=== PATIENT | male | born 1955 | race Caucasian/White ===

== ENCOUNTER → 2017-04-26 | Outpatient (CLI) | payer OTHER ==
--- NOTE | 2017-04-26 16:42 | US ---
EXAMINATION TYPE: US abdomen complete DATE OF EXAM: 04/26/2017 COMPARISON: NONE CLINICAL HISTORY: R10.13 Epigastric pain R19.36 Epigastric abd rigid. Epigastric pain, NPO EXAM MEASUREMENTS: Liver Length: 17.2 cm Gallbladder Wall: 0.2 cm CHD: 0.6 cm Spleen: 13.2 cm Right Kidney: 12.6 x 6.0 x 5.0 cm Left Kidney: 12.7 x 5.1 x 6.1 cm Limited exam due to overlying bowel gas Pancreas: Body appears echogenic and suboptimally seen due to overlying bowel gas. Head and gas obs cured by overlying bowel gas Liver: Appears heterogenous, echogenic and upper limits of normal in size Gallbladder: wnl Evidence for sonographic High's sign: neg CHD: wnl Spleen: Slightly enlarged Right Kidney: Appears lobular and cortical thinning seen Left Kidney: Appears lobular and cortical thinning seen Upper IVC: Obscured by overlying bowel gas Abd Aorta: Obscured by overlying bowel gas The liver is heterogenous. The intrahepatic portion of the IVC and proximal abdominal aorta are withi n normal limits. There is no evidence of cholelithiasis. Common bile duct is unremarkable. The vis ualized portions of the pancreas are homogenous. The spleen is mildly enlarged. Kidneys are symmetri c and free of hydronephrosis. No renal lesions are seen. IMPRESSION: 1. Fatty liver versus diffuse hepatocellular disease. 2. Mild splenomegaly.
[2017-04-26 17:40] LABS: Basophils # (A) 0.1 k/uL (0-0.2); Basophils % (A) 0 %; Eosinophils # (A) 0.2 k/uL (0-0.7); Eosinophils % (A) 1 %; HCT 47.8 % (39.0-53.0); HGB 16.8 gm/dL (13.0-17.5); Lymphocytes # (A) 1.4 k/uL (1.0-4.8); Lymphocytes % (A) 11 %; MCH 31.3 pg (25.0-35.0); MCHC 35.1 g/dL (31.0-37.0); MCV 88.9 fL (80.0-100.0); Mean Platelet Volume 7.1; Monocytes # (A) 0.8 k/uL (0-1.0); Monocytes % (A) 6 %; Neutrophils # (A) 10.5 k/uL (1.3-7.7); Neutrophils % (A) 80 %; Platelet Count 193 k/uL (150-450); RBC 5.38 m/uL (4.30-5.90); RDW 12.4 % (11.5-15.5); WBC 13.2 k/uL (3.8-10.6)
[2017-04-26 17:49] LABS: ALT 48 U/L (21-72); AST 33 U/L (17-59); Albumin 4.3 g/dL (3.5-5.0); Alkaline Phosphatase 58 U/L (38-126); Amylase 58 U/L (30-110); Anion Gap 12 mmol/L; Blood Urea Nitrogen 16 mg/dL (9-20); Carbon Dioxide 27 mmol/L (22-30); Chloride 98 mmol/L (98-107); Glucose 89 mg/dL (74-99); Lipase 128 U/L (23-300); Potassium 4.2 mmol/L (3.5-5.1); Sodium 137 mmol/L (137-145); Total Bilirubin 1.1 mg/dL (0.2-1.3); Total Protein 6.9 g/dL (6.3-8.2)
== END | disposition home or self-care (01) ==
LOC: RADUSWWP 15:52
PROVIDERS: ATTEND Family Medicine
DX: K76.0 Fatty (change of) liver, not elsewhere classified (principal); R16.1 Splenomegaly, not elsewhere classified
CPT/HCPCS: 36415; 76700; 80053; 82150; 83690; 85025

== ENCOUNTER → 2021-11-09 | Outpatient (CLI) | payer OTHER ==
--- NOTE | 2021-11-09 15:25 | XR ---
EXAMINATION TYPE: XR chest 2V DATE OF EXAM: 11/09/2021 3:18 PM COMPARISON: Chest radiographs from 06/29/2015. TECHNIQUE: XR chest 2V Frontal and lateral views of the chest. CLINICAL INDICATION:Male, 66 years old with history of B342 COVID INFECTION; FINDINGS: Lungs/Pleura: There is no evidence of pleural effusion, focal consolidation, or pneumothorax. Chroni c mild interstitial prominence. Peribronchial cuffing demonstrated. Heart/mediastinum: Cardiomediastinal silhouette is prominent but stable. Musculoskeletal: Multiple level degenerative disc disease changes seen throughout the spine. No acute osseous abnormality. IMPRESSION: Peribronchial cuffing demonstrated. Correlate for bronchitis. No focal consolidation.
== END | disposition home or self-care (01) ==
LOC: RADXRYALE 15:02
PROVIDERS: ATTEND Physician Assistant
DX: B34.2 Coronavirus infection, unspecified (principal)
CPT/HCPCS: 71046

== ENCOUNTER → 2021-12-20 | Outpatient (CLI) | payer MEDICARE ==
--- NOTE | 2021-12-22 23:12 | XR ---
EXAMINATION TYPE: XR chest 2V DATE OF EXAM: 12/21/2021 COMPARISON: Chest x-ray November 09, 2021 HISTORY: Presurgical TECHNIQUE: Frontal and lateral views of the chest are obtained. FINDINGS: There is mild chronic parenchymal change without suspicious new focal air space opacity, p leural effusion, or pneumothorax seen. The cardiac silhouette size is redemonstrated enlarged. The osseous structures are intact. IMPRESSION: Cardiomegaly without acute pulmonary process.
== END | disposition home or self-care (01) ==
LOC: RADXRMAIN 14:58
PROVIDERS: ATTEND Orthopaedic Surgery Orthopaedic Surgery of the Spine
DX: Z01.818 Encounter for other preprocedural examination (principal); I51.7 Cardiomegaly
CPT/HCPCS: 71046

== ENCOUNTER → 2021-12-20 | Outpatient (CLI) | payer MEDICARE | END | disposition home or self-care (01) | LOC: LABPAT 21:41 | PROVIDERS: ATTEND Orthopaedic Surgery Orthopaedic Surgery of the Spine | DX: Z53.9 Procedure and treatment not carried out, unspecified reason (principal) ==

== ENCOUNTER 2021-12-26 07:57 | Inpatient (IN) | payer OTHER ==
[2021-12-22 10:17] VITALS: BMI 34.4
[~2021-12-26 07:57] MED LIST: DEXAMETHASONE SOD PHOSPHATE 4 MG/ML 1 ML VIAL IV ONE; HYDROmorphone 0.5 MG/0.5 ML SYRINGE IVP PRN; ONDANSETRON 4 MG/2 ML VIAL IVP ONE; ceFAZolin 1,000 MG in SODIUM CHLORIDE 0.9% IRRIGATIO 1,000 ML IRRIGATION PRN
[2021-12-26] MEDS: LACTATED RINGERS 1,000 ML IV SCH ×2 (12:18→12:36)
[2021-12-26] MEDS ORDERED: LIDOCAINE 2%-EPI 1:100,000 20 ML VIAL SQ ONE ×2 (12:28→13:11)
[2021-12-26] MEDS ORDERED: GELATIN SPONGE,ABSORB (LARGE) 1 EACH SPONGE MISCELLANE ONE (12:28)
[2021-12-26] MEDS ORDERED: BUPIVACAINE (PF) 0.5% 30 ML VIAL SQ ONE ×2 (12:28→13:11)
[2021-12-26] MEDS ORDERED: THROMBIN (BOVINE) 5,000 UNIT VIAL MISCELLANE ONE (12:29)
[2021-12-26] MEDS ORDERED: HYDROmorphone (PF) 1 MG/ML ONE (12:33)
[2021-12-26] MEDS ORDERED: KETAMINE 10 MG/ML 20 ML VIAL ONE (12:33)
[2021-12-26] MEDS ORDERED: MIDAZOLAM 2 MG/2 ML VIAL ONE (12:33)
[2021-12-26] MEDS ORDERED: ROCURONIUM 10 MG/ML (5 ML VIAL) IV ONE (12:33)
[2021-12-26] MEDS ORDERED: NEOSTIGMINE 1 MG/ML 10 ML VIAL ONE (12:33)
[2021-12-26] MEDS ORDERED: LIDOCAINE 2% INJ 20 MG/ML (2 ML VIAL) ONE (12:33)
[2021-12-26] MEDS ORDERED: DEXAMETHASONE SOD PHOSPHATE 10 MG/ML 1 ML VIAL ONE (12:33)
[2021-12-26] MEDS ORDERED: PROPOFOL 10 MG/ML 20 ML VIAL IV ONE (12:33)
[2021-12-26] MEDS ORDERED: fentaNYL (PF) 50 MCG/ML 2 ML AMP ONE (12:33)
[2021-12-26] MEDS ORDERED: GLYCOPYRROLATE 0.2 MG/ML 2 ML VIAL ONE (12:33)
[2021-12-26] MEDS ORDERED: ePHEDrine 50 MG/ML 1 ML VIAL ONE (12:33)
[2021-12-26] MEDS ORDERED: PHENYLEPHRINE-0.9% NACL SYG 1,000 MCG/10 ML SYRINGE ONE (12:33)
[2021-12-26] MEDS ORDERED: SUCCINYLCHOLINE CHLORIDE 200 MG/10 ML VIAL IV ONE (12:33)
[2021-12-26 12:47] LABS: ALT 29 U/L (4-49); AST 37 U/L (17-59); African American GFR (CKD) >90 (>60 ml/min/1.73 sqM); Albumin 4.4 g/dL (3.5-5.0); Alkaline Phosphatase 60 U/L (38-126); Anion Gap 8 mmol/L; Blood Urea Nitrogen 14 mg/dL (9-20); Calcium 9.5 mg/dL (8.4-10.2); Carbon Dioxide 28 mmol/L (22-30); Chloride 101 mmol/L (98-107); Glucose 95 mg/dL (74-99); Non-African American GFR(CKD) >90 (>60 ml/min/1.73 sqM); Potassium 4.1 mmol/L (3.5-5.1); Sodium 137 mmol/L (137-145); Total Bilirubin 0.9 mg/dL (0.2-1.3); Total Protein 6.9 g/dL (6.3-8.2)
[2021-12-26] MEDS ORDERED: LACTATED RINGERS 1,000 ML IV ONE (13:50)
[2021-12-26] MEDS ORDERED: HYDROmorphone 0.5 MG/0.5 ML SYRINGE IVP PRN (15:14)
[2021-12-26] MEDS ORDERED: BENZOCAINE/MENTHOL LOZENG 1 EACH LOZENGE MUCOUS MEM PRN (15:14)
[2021-12-26] MEDS ORDERED: HYDROmorphone 1 MG/ML 1 ML SYRINGE IVP PRN (15:14)
--- NOTE | 2021-12-26 15:14 | XR ---
EXAMINATION TYPE: XR cervical spine limited, XR cervical spine limited DATE OF EXAM: 12/26/2021 1:39 PM INDICATION: Patient age:Male; 66 years old; Reason for study: NEEDLE PLACEMENT PRIOR TO FUSION; [facility]. COMPARISON: None TECHNIQUE: The cervical spine was single lateral projection. FINDINGS: Needle placement radiograph for cervical fusion. Needle tip at superior endplate of C4 anteriorly. En dotracheal tube in place. No evidence of acute fracture. IMPRESSION: Radiographic services for needle placement for cervical fusion.
[2021-12-26] MEDS ORDERED: ONDANSETRON 4 MG/2 ML VIAL IVP PRN (15:15)
[2021-12-26] MEDS ORDERED: CYCLOBENZAPRINE 10 MG TAB PO PRN (15:16)
--- NOTE | 2021-12-26 15:26 | P.OP ---
Date of Procedure: 12/26/21 Preoperative Diagnosis: Severe cervical stenosis C3 4 C4 5 C5 6, myelopathy, cervical myelomalacia, degenerative disc disease C3 4 C4 5 C5 6, upper extremity weakness, upper extremity myeloradiculopathy, neck pain Postoperative Diagnosis: Same Anesthesia: GETA Pathology: none sent Condition: stable Disposition: PACU Description of Procedure: BRIEF OPERATIVE NOTE Preoperative Diagnosis:Severe cervical stenosis C3 4 C4 5 C5 6, myelopathy, cervical myelomalacia, degenerative disc disease C3 4 C4 5 C5 6, upper extremity weakness, upper extremity myeloradiculopathy, neck pain Postoperative Diagnosis:Severe cervical stenosis C3 4 C4 5 C5 6, myelopathy, cervical myelomalacia, degenerative disc disease C3 4 C4 5 C5 6, upper extremity weakness, upper extremity myeloradiculopathy, neck pain Procedure: Anterior cervical decompression and fusion C3 4 C4 5 C5 6 Subtotal corpectomy of C4 for decompression Placement of interbody graft C3 4 C4 5 C5 6 Application of anterior cervical plate C3 4 5 and 6 Surgeon: Dr. Conn Owner Operator Tanker Truck Driver: Alin BUENROSTRO who is present throughout the entire the case persistence during positioning, dissection, exposure, visualization, and all crucial elements of the case as well as closure. Anesthesia: General anesthesia per Dr. Stewart Estimated blood loss: Approximately 100 mL Complications: None apparent Components implanted: K2M [place] anterior cervical plate system with screws and Vikos interbody allograft bone graft with 1 mL of DBX bone putty Disposition: To recovery room in good stable condition. OPERATIVE INDICATIONS The patient has had long-standing issues in their neck and upper extremities. He's been having worsening over the past couple of months. The patient has been through conservative treatment. He is found to have evidence of significant changes at his cervical spine with Klippel-Feil fusion at C2 3 with severe stenosis C3 4 C4 5 C5 6 with myelomalacia at his cervical spine which correlated with his neck upper extremity and myelopathic symptoms. We felt that he should undergo surgical intervention. We discussed various treatment options including surgery, and the patient wishes to proceed with surgery We discussed the risk, patient's alternatives and benefits of surgery including but not limited to, risk of bleeding risk of infection, risk of need for further surgery, risk of decreased, loss of motion, muscle function, malunion nonunion, hardware failure, nerve damage, paralysis, heart attack, and . OPERATIVE SUMMARY After discussing all the risks, patient alternatives and benefits at length, the patient elected to proceed with surgical intervention, signed informed consent, and presented for their procedure. The patient was seen and examined in the preoperative holding area and the surgical site was marked. The patient was given antibiotics and brought to the operating room. The patient was positioned on the operating room table in a supine position being careful to pad any bony prominences and pressure points. The patient was sedated and intubated by anesthesia in standard fashion. Once the airway and C-spine were stabilized the patient's arms were padded and tucked at her side, with her shoulders gently taped. The head was placed in a donut pad with the neck in good neutral alignment and position. We were careful to maintain the patient's cervical spine and good neutral alignment and position throughout. The patient was prepped and draped in a normal standard fashion. An appropriate timeout and keystone protocol performed. We were able to proceed with the surgery. The local wound area was infiltrated with local anesthetic. An incision was made transversely approximately 2-1/2 cm over the appropriate levels at C4. Dissection was taken down subcutaneously to the level of the platysma which was split in line with its fibers. Dissection was taken with a carotid approach, with the trachea and esophagus medial and the carotid sheath laterally. We dissected down to the anterior surface of the vertebral bodies from C3 to C6. Intraoperative x-ray was taken which showed a marker at the appropriate level at C4 5. With the appropriate level positively confirmed, we were able to proceed with discectomy at the appropriate levels. All of the operative levels were exposed appropriately. The patient had all their twitches back, and there was no evidence of recurrent laryngeal issue. The wound was copiously irrigated and suctioned dry as had been done periodically throughout the case. At the appropriate level/levels, starting at C3 4 and including C4 5 and then C5 6 I established an annulotomy with an 11 blade scalpel. A discectomy was performed with a combination of pituitary rongeurs, curettes, a high-speed bur, and Kerrison rongeurs. The posterior longitudinal ligament was taken down as were any posterior osteophytes. There was evidence of significant stenosis behind see for both superiorly and inferiorly. I had to take down good portions of the superior portion of the vertebral body of C4 as well as injury portion of vertebral body of C4 in order to obtain adequate decompression. I and the performing a subtotal corpectomy but able to leave the middle third of the vertebral body at C4 to provide some stability and position for bony fusion. This gave good central and bilateral foraminal decompression. Good decompression discectomy was performed at C56 as well. There is no evidence of any dural tear or leak. The endplates were prepared with a high-speed bur. With the endplates in good parallel position, I was able to size for the appropriate size interbody graft. The wound was irrigated and suctioned dry the graft was prepared and malleted into position. It had good alignment and position with the anterior surface flush with the anterior surface of the vertebral bodies. This was done similarly the appropriate levels. With the grafts intact, I was able to measure and contour and appropriate sized plate. The plate was positioned at the midline over the appropriate levels. Screw holes were established with a hand drill and drill guide. Screws were placed in good alignment and position with excellent bony purchase. They were seated under the locking device. The construct was checked and found to be stable. Intraoperative x-ray was taken which showed good alignment and position of the implants at the appropriate levels. There was no evidence of any dural tear or leak. Good hemostasis was maintained. The wound was copiously irrigated and suctioned dry as had been done periodically throughout the case. The platysma was closed with absorbable suture. The subcutaneous tissue was closed. The subcuticular tissue was closed with absorbable suture. The wound was cleaned and dried and dressed appropriately. A soft cervical collar was placed appropriately. The patient was woken up by anesthesia, extubated, transferred back gently to their hospital bed and brought to the recovery room in good stable condition. The patient will be admitted to the hospital for appropriate postoperative care, medical management and monitoring. We will continue to follow them closely about the postoperative course.
[2021-12-26] MEDS ORDERED: ESCITALOPRAM 10 MG TAB PO SCH (17:30)
[2021-12-26] MEDS ORDERED: LOSARTAN-HCTZ 50-12.5 MG 1 EACH TAB PO SCH (17:30)
[2021-12-26 19:58] VITALS: RESP 16
[2021-12-26] MEDS: HYDROcodone/APAP 5-325MG 1 EACH TAB PO PRN (20:47)
[2021-12-26] MEDS: CYCLOBENZAPRINE 10 MG TAB PO PRN (20:47)
[2021-12-27] MEDS: HYDROcodone/APAP 5-325MG 1 EACH TAB PO PRN ×2 (02:10→06:03)
[2021-12-27] MEDS: CYCLOBENZAPRINE 10 MG TAB PO PRN (06:03)
[2021-12-27] MEDS: LACTATED RINGERS 1,000 ML IV SCH (06:14)
[2021-12-27 08:01] VITALS: BP 156/74; PULSE 87; TEMP 98
--- NOTE | 2021-12-27 08:45 | P.DS ---
Providers Date of admission: 12/26/21 10:59 Expected date of discharge: 12/27/21 Attending physician: Tita Conn Primary care physician: Darius Bell - Discharge Diagnosis(es) (1) Cervical myelopathy Current Visit: Yes Status: Acute (2) Cervical cord myelomalacia Current Visit: Yes Status: Acute (3) Upper extremity weakness Current Visit: Yes Status: Acute (4) Radiculopathy affecting upper extremity Current Visit: Yes Status: Acute (5) Cervicalgia Current Visit: Yes Status: Acute (6) Cervical stenosis of spinal canal Current Visit: Yes Status: Acute (7) Degenerative cervical disc Current Visit: Yes Status: Acute (8) Status post cervical spinal fusion Current Visit: Yes Status: Acute (9) Hyperlipidemia Current Visit: Yes Status: Acute (10) Hypertension Current Visit: Yes Status: Acute (11) Unsteady gait Current Visit: Yes Status: Acute (12) History of shortness of breath Current Visit: Yes Status: Acute Hospital Course: This is a pleasant 66-year-old male who presented with cervical myelopathy, cervical myelomalacia, upper extremity weakness, upper extremity radiculopathy, cervical stenosis, cervicalgia, and cervical degenerative disc disease who failed outpatient conservative therapy. He was admitted for a C3-4, C4-5, and C5-6 anterior cervical decompression and fusion. The patient tolerated the procedure well and did well postoperatively. He is not experiencing the numbness in his hands like he was prior to surgical intervention. He is able to make a fist bilaterally this morning which he could not do prior to surgical intervention. He is very happy with his progress so far postoperatively. His cervical pain is well-controlled. He is voiding without difficulty. His breakfast was delivered this morning but he has not even unit. He feels he is r arlen for discharge today. Condition on day of discharge stable. Patient will be discharged home. Patient was cleared preoperatively for surgery by Dr. Bell. Patient currently denies any nausea, vomiting, fever, or chills. Patient may shower Optifoam dressing intact. Patient may remove Optifoam dressing in 3 days and shower without a dressing at that time. Patient should refrain from driving until at least after their first follow-up appointment in the office. Patient should avoid excessive bending, lifting, and twisting; no lifting greater than 10 pounds. He may wear a soft cervical collar for comfort support as needed. MAPS was previously reviewed. An "Opiod Start Talking" Form has been signed and placed in the patient's chart. A prescription has been written for [place] 5 mg/325 mg 1 tablet every 4 hours as needed for pain, dispense #42. He may resume his other previously prescribed home medications while avoiding anti-inflammatory medications postoperatively over the next 6 weeks. Patient's other medical diagnoses include hypertension, hyperlipidemia, unsteady gait, and history of shortness of breath. Physical Exam on day of discharge: Patient is awake, alert, and oriented 3 Vital signs stable Good chest excursion with deep inspiration and expiration Full range of motion of the cervical spine with adequate flexion, extension, and bilateral rotation Special Needs Bus Driver strength, thumb strength, interosseous strength, biceps strength, triceps strength, and shoulder strength positive sustained bilaterally Soft cervical collar intact and removed during physical examination Incision is clean, dry, and intact; no erythema, purulence, or signs of infection No significant swelling, bruising, or erythema around the surgical site Optifoam dressing intact Procedures: C3-4, C4-5, and C5-6 anterior cervical decompression and fusion Patient Condition at Discharge: Stable Plan - Discharge Summary Discharge Rx Participant: Yes New Discharge Prescriptions: New HYDROcodone/APAP 5-325MG [[place] 5-325] 1 tab PO Q4HR PRN 7 Days #42 tab PRN Reason: Pain No Action Aspirin 81 mg PO DAILY [place]-3 Fatty Acids/Fish Oil [Fish Oil 1,000 mg Softgel] 1 each PO DAILY Cholecalciferol [Vitamin D3] 2,000 unit PO DAILY Pravastatin Sodium 80 mg PO Q2D Multivitamins, Thera [Multivitamin] 1 tab PO DAILY Losartan/Hydrochlorothiazide [Losartan-Hctz 100-25 mg Tab] 1 each PO W/SUPPER Metaxalone [Skelaxin] 800 mg PO TID PRN PRN Reason: Pain Ascorbic Acid/Collagen Hydr [Collagen Plus Vit C Capsule] 1 each PO DAILY Ibuprofen [Motrin] 400 mg PO Q8HR PRN PRN Reason: Pain Escitalopram [Lexapro] 10 mg PO W/SUPPER Discharge Medication List Aspirin 81 mg PO DAILY 12/23/15 [History] Cholecalciferol [Vitamin D3] 2,000 unit PO DAILY 12/23/15 [History] Losartan/Hydrochlorothiazide [Losartan-Hctz 100-25 mg Tab] 1 each PO W/SUPPER 12/23/15 [History] Metaxalone [Skelaxin] 800 mg PO TID PRN 12/23/15 [History] Multivitamins, Thera [Multivitamin] 1 tab PO DAILY 12/23/15 [History] [place]-3 Fatty Acids/Fish Oil [Fish Oil 1,000 mg Softgel] 1 each PO DAILY 12/23/15 [History] Pravastatin Sodium 80 mg PO Q2D 12/23/15 [History] Ascorbic Acid/Collagen Hydr [Collagen Plus Vit C Capsule] 1 each PO DAILY 12/22/21 [History] Escitalopram [Lexapro] 10 mg PO W/SUPPER 12/22/21 [History] Ibuprofen [Motrin] 400 mg PO Q8HR PRN 12/22/21 [History] HYDROcodone/APAP 5-325MG [[place] 5-325] 1 tab PO Q4HR PRN 7 Days #42 tab 12/26/21 [Rx] Follow up Appointment(s)/Referral(s): Tita Conn DO [Doctor of Osteopathic Medicine] - 2 Weeks Activity/Diet/Wound Care/Special Instructions: Keep site clean. May shower with waterproof Optifoam intact. Do not soak in a tub. After 72 hours postoperatively, patient May remove dressing and then may shower with area uncovered. Leave glue intact and allow it to fray off on its own. May ambulate as tolerated. Avoid heavy or rigorous activity. No repetitive bending twisting or lifting. No lifting greater than 10 pounds. No overhead work. May wear soft cervical collar for comfort support as needed Take medications as prescribed. Discharge Disposition: HOME SELF-CARE
[2021-12-27] MEDS ORDERED: ASPIRIN 81 MG PO SCH (09:00)
[2021-12-27] MEDS ORDERED: ASCORBIC ACID 500 MG TAB PO SCH (09:00)
[2021-12-27] MEDS ORDERED: MULTIVITAMINS, THERA 1 EACH TAB PO SCH (09:00)
[2021-12-27] MEDS ORDERED: PRAVASTATIN SODIUM 80 MG TAB PO SCH (09:00)
[2021-12-27] MEDS ORDERED: NON FORMULARY DRUG (Omega-3 Fatty Acids/Fish Oil [Fish Oil 1,000 Mg Softgel] 1 EACH Capsul PO SCH (09:00)
[2021-12-27] MEDS ORDERED: SENNOSIDES-DOCUSATE SODIUM 1 EACH TAB PO SCH (09:00)
[2021-12-27] MEDS ORDERED: CHOLECALCIFEROL 25 MCG (1000 IU) TABLET PO SCH (09:00)
== END 2021-12-27 10:25 | disposition home or self-care (01) | DRG 472 ==
LOC: 2ORMAIN 10:59 → EDSTATUS 12:30 → 5NMEDONC 15:17
PROVIDERS: ADMIT Orthopaedic Surgery Orthopaedic Surgery of the Spine; ATTEND Orthopaedic Surgery Orthopaedic Surgery of the Spine
PROC: 00NW0ZZ Release Cervical Spinal Cord, Open Approach (ICD-10-PCS; 2021-12-26)
PROC: 0RT30ZZ Resection of Cervical Vertebral Disc, Open Approach (ICD-10-PCS; 2021-12-26)
PROC: 0RG20A0 Fusion of 2 or more Cervical Vertebral Joints with Interbody Fusion Device, Anterior Approach, Anterior Column, Open Approach (ICD-10-PCS; principal; 2021-12-26 12:30)
DX: M48.02 Spinal stenosis, cervical region (principal); G95.89 Other specified diseases of spinal cord; M50.01 Cervical disc disorder with myelopathy, high cervical region; K21.9 Gastro-esophageal reflux disease without esophagitis; M50.11 Cervical disc disorder with radiculopathy, high cervical region; F32.9 Major depressive disorder, single episode, unspecified; F41.8 Other specified anxiety disorders; E78.2 Mixed hyperlipidemia; E66.01 Morbid (severe) obesity due to excess calories; M51.36 Other intervertebral disc degeneration, lumbar region; J45.20 Mild intermittent asthma, uncomplicated; I10 Essential (primary) hypertension; Q76.1 Klippel-Feil syndrome; Z79.82 Long term (current) use of aspirin; Z79.899 Other long term (current) drug therapy; Z87.891 Personal history of nicotine dependence; Z86.16 Personal history of COVID-19; Z68.34 Body mass index [BMI] 34.0-34.9, adult
CPT/HCPCS: 72020; 72040; 80053; 86850; 86900; 86901

== ENCOUNTER 2022-12-29 12:02 | Day surgery (SDC) | payer MEDICARE, OTHER ==
[2022-12-28 16:05] VITALS: BMI 34.4
[2022-12-29] MEDS ORDERED: LIDOCAINE 1% (10MG/ML) FOR IV START INTRADERMA PRN (13:27)
[2022-12-29] MEDS: LACTATED RINGERS 1,000 ML IV SCH ×3 (13:39→14:12)
[2022-12-29] MEDS ORDERED: PROPOFOL 10 MG/ML 20 ML VIAL IV ONE (14:15)
--- NOTE | 2022-12-29 14:39 | P.PCN ---
Date of Procedure: 12/29/22 Procedure(s) Performed: BRIEF HISTORY: Patient is a 56-year-old pleasant white male scheduled for an elective colonoscopy as a part of screening for colon cancer and family history of colon cancer. His father was diagnosed with colon cancer at age 75. PROCEDURE PERFORMED: Colonoscopy with snare polypectomy. PREOPERATIVE DIAGNOSIS: Screening for colon cancer/family history of colon cancer. IV sedation per Anesthesia. PROCEDURE: After informed consent was obtained, the patient, was brought into [facility] endoscopy unit. IV sedation was administered by Anesthesia under continuous monitoring. Digital rectal examination was normal. Initially the Olympus CF-160 flexible video colonoscope was then inserted in the rectum, gradually advanced into the cecum without any difficulty. Careful examination was performed as the scope was gradually being withdrawn. Ileocecal valve and the appendiceal orifice were visualized and appeared normal. Prep was excellent. Mucosa of the cecum, appeared normal. In the ascending colon there was a 7 mm polyp removed by cold snare polypectomy. Rest of theascending colon, transverse colon, descending colon, sigmoid colon, and rectum appeared normal. in the proximal rectum there was a 4 mm polyp removed by cold snare polypectomy.Retroflexion was performed in the rectum and no lesions were seen. The patient tolerated the procedure well. IMPRESSION: 7 mm ascending colon polyp status post polypectomy 4 mm rectal polyp status post polypectomy Rest of the colon appeared normal RECOMMENDATIONS: Findings of this examination were discussed with the patient as well as his family. He was advised to follow with the biopsy results and have a repeat colonoscopy in 5 years because of the family history of colon cancer
[2022-12-29 15:32] VITALS: BP 128/77; PULSE 64; RESP 16; TEMP 98
== END 2022-12-29 15:35 | disposition home or self-care (01) ==
LOC: ORWHC2ENDO 12:02
PROVIDERS: ATTEND Internal Medicine Gastroenterology
DX: Z12.11 Encounter for screening for malignant neoplasm of colon (principal); D12.2 Benign neoplasm of ascending colon; K62.1 Rectal polyp; I10 Essential (primary) hypertension; E78.5 Hyperlipidemia, unspecified; F41.9 Anxiety disorder, unspecified; Z80.0 Family history of malignant neoplasm of digestive organs; Z79.1 Long term (current) use of non-steroidal anti-inflammatories (NSAID); Z79.84 Long term (current) use of oral hypoglycemic drugs; Z79.811 Long term (current) use of aromatase inhibitors; Z79.899 Other long term (current) drug therapy
CPT/HCPCS: 88305; 45385; J2704